=== PATIENT | female | born 1990 | race Caucasian/White ===

== ENCOUNTER 2024-08-03 13:48 | Emergency (ER) | payer OTHER, SELFPAY ==
[2024-08-03 13:49] VITALS: BP 109/74
[2024-08-03 14:09] LABS: % Basophils 0.5 % (0-2); % Eosinophils 0.7 % (0-6); % Immature Granulocytes 0.3 % (0-0.5); % Lymphocytes 19.5 % (20.5-51.1); % Monocytes 5.6 % (1.7-9.3); % Neutrophils 73.4 % (42.2-75.2); Absolute Eosinophils 0.1 10^3/uL (0-0.7); Absolute Lymphocytes 1.7 10^3/uL (1.2-3.4); Absolute Monocytes 0.5 10^3/uL (0.1-0.6); Absolute Neutrophils 6.3 10^3/uL (1.4-6.5); Hemoglobin 13.7 g/dL (12.0-16.0); Mean Corp Hgb Conc. 34.3 g/dL (33.0-37.0); Mean Corpuscular Hgb 30.6 pg (27.0-31.0); Mean Corpuscular Volume 89.5 fL (81.0-99.0); Mean Platelet Volume 10.8 fL (7.4-10.4); Nucleated Red Blood Cells % 0 %; Platelet Count 228 10^3/uL (130-400); Red Blood Cell Count 4.47 10^6/uL (4.20-5.40); White Blood Cell Count 8.6 10^3/uL (4.8-10.8)
[2024-08-03 14:23] LABS: ALT (SGPT) 17 U/L (0-35); AST (SGOT) 16 U/L (14-36); Albumin 4.5 g/dl (3.5-5.0); Alkaline Phosphatase 68 U/L (38-126); Blood Urea Nitrogen 4 mg/dl (7-17); Calcium 9.6 mg/dl (8.4-10.2); Carbon Dioxide 31 mmol/L (22-30); Chloride 105 mmol/L (98-107); Glucose 100 mg/dl (70-99); Potassium 4.9 mmol/L (3.5-5.1); Sodium 142 mmol/L (135-145); Total Bilirubin 0.4 mg/dl (0.2-1.3); Total Protein 6.8 g/dl (6.3-8.2); eGFR > 60.00
[2024-08-03 15:21] VITALS: BMI 27.8
[2024-08-03 15:40] VITALS: BP 105/63; BP 105/65; BP 97/49; PULSE 73; PULSE 88; PULSE 93
[2024-08-03 16:02] LABS: Iron 151 ug/dl (37-170)
[2024-08-03] MEDS: NSS 1000 IV (16:39)
--- NOTE | 2024-08-03 17:27 | ED.GENMED ---
History of Present Illness
General
Chief Complaint: Dizziness
Source: patient
Exam Limitations: none
Time Seen by Provider: 08/03/24 15:20
Nursing documentation reviewed up to this point in time: agreed with
History of Present Illness
History of Present Illness:
Patient presents ED secondary to persistent sensation of dizziness with nausea sensation, when standing up from sitting position, along with intermittent episodes of diarrhea as well as diffuse headache over the past 4 days. Last night, patient
states that she may have passed out for seconds, when she stood up with dizziness. Denies injury from the fall. Denies loss of sensation or weakness. Denies blurred vision. Denies difficulty with ambulation. Denies recent illness. Of note,
patient has been treated for iron deficiency anemia recently. In addition, patient states that there has been number of medication changes recently.
Review of Systems
Review of Systems
Allergies reviewed?: Yes
All Other Systems: ROS reviewed and negative except as documented in HPI and ROS
Constitutional: Reports no symptoms
Respiratory: Reports no symptoms
Cardiac: Reports syncope
ABD/GI: Reports no symptoms
Musculoskeletal: Reports no symptoms
Skin: Reports no symptoms
Neurological: Reports dizzy
Phy Exam
Physical Exam
Physical Exam:
Physical Exam
General: no apparent distress, not acutely ill. afebrile
Head: nc/at. eomi. no nystagmus.
Neck: supple. no meningeal signs.
Heart: s1/s2 regular rate and rhythm
Lungs: no acute respiratory distress. clear bilaterally
Abdomen: normal bowel sounds. not tender.
Neuro: alert and oriented x 3. no focal neurological deficits. normal gait. normal speech.
Skin: no rash
Psychiatric: well kept. interactive and cooperative
Extremities: no edema. no calf tenderness.
Course
Orders/Labs/Results
Orders:
Orders
08/03/24 13:53
Electrocardiogram (*1) Urgent
Reason for Study: Abdominal Pain
EKG- Treatment ONCE
08/03/24 14:04
Complete Blood Count/With Diff Urgent
Comprehensive Metabolic Panel Urgent
Ferritin Urgent
Comment: ADD ON
Iron Urgent
Comment: ADD ON
08/03/24 15:32
Add On- LAB Urgent
Tests Added?: iron
CT Head W/o Iv Contrast Urgent
Comment:
Reason For Exam: headache w dizziness
Orthostatic VS- Treatment ONCE
08/03/24 16:21
0.9% Sodium Chloride 1000 ml [Nss] 1,000 ml IV BOLUS
08/03/24 17:52
Add On- LAB Urgent
Tests Added?: ferritin
Abnormal Lab Results
08/03/24
14:04
MPV 10.8 H fL
(7.4-10.4)
Lymphocytes % 19.5 L %
(20.5-51.1)
Carbon Dioxide 31 H mmol/L
(22-30)
BUN 4 L mg/dl
(7-17)
Glucose 100 H mg/dl
(70-99)
08/03/24 14:04
08/03/24 14:04
Vital Signs
Initial and Last Documented VS:
Initial Vital Signs
Temp Pulse Resp BP Pulse Ox
97.8 F 102 20 109/74 97
08/03/24 13:49 08/03/24 13:49 08/03/24 13:49 08/03/24 13:49 08/03/24 13:49
Last Documented Vital Signs
Temp Pulse Resp BP Pulse Ox
98.2 F 82 16 114/69 99
08/03/24 17:50 08/03/24 17:50 08/03/24 17:50 08/03/24 17:50 08/03/24 17:50
MDM/Problems Addressed
MDM/Problems Addressed:
Patient with unremarkable workup in ED, including blood work and CT head. Orthostatic vital signs checked, without overt symptoms. Patient's present symptoms, likely multifactorial, including current diarrheal episodes along with recent medication
adjustments, as well as iron deficiency anemia. Patient will be provided IV fluids and discharged home, with recommendation to follow-up with her PCP for reevaluation.
*Critical Care Note
Total Time (30-74mins, 75-104mins- exclusive of procedures): Not Applicable
ED Attending Note
-
Portions of this chart may have been created with voice recognition software.� Occasional wrong word or��sound alike� substitutions may have occurred due to the inherent limitations of voice recognition software.
Discharge Plan
Departure
Patient Disposition: Home (Routine Discharge)
Date of Disposition: 08/03/24
Time of Disposition: 17:28
Patient with high blood pressure during this ER visit?: No
Discharge Problem:
Dizziness
Instructions: Dizziness
Prescriptions:
No Action
fluoxetine [Prozac] 40 mg Capsule
40 mg PO DAILY
dextroamphetamine-amphetamine [Adderall] 7.5 mg Tablet
7.5 mg PO BID
omeprazole 20 mg Tablet,Delayed Release (Dr/Ec)
20 mg PO DAILY
Lamictal
100 mg PO HS
acetaminophen [acetaminophen] 325 mg tablet
650 mg PO Q4HPRN PRN (Reason: mild pain) Qty: 1 0RF
ibuprofen 200 mg tablet
400 - 600 mg PO Q6HPRN PRN (Reason: moderate pain) Qty: 1 0RF
oxycodone 5 mg tablet
5 mg PO Q4HPRN PRN (Reason: breakthrough/severe pain) Qty: 10 0RF
Referrals:
NONE,* [Family Provider] -
Activity Restrictions/Additional Instructions:
As discussed, please follow-up with your primary care physician for reevaluation.
Interventions
Interventions:
*Risk Screen - Suicide Last Done: 08/03/24 13:49
*General Assessment Last Done: 08/03/24 13:49
*Neglect/Abuse Screening Last Done: 08/03/24 13:49
*Nursing Disposition Last Done: 08/03/24 17:54
ED- Neurological Assessment Last Done: 08/03/24 15:21
Discharge Date and Time
Discharge Date/Time: 08/03/24 18:08
Print Language: GREEK
[2024-08-03 17:50] VITALS: BP 102/68; BP 111/61; BP 114/69; PULSE 76; PULSE 78; PULSE 82
[2024-08-03 19:17] LABS: Ferritin 11.2 ng/ml (6.24-137)
== END 2024-08-03 18:08 | disposition home or self-care (01) ==
LOC: EMR 13:48
PROVIDERS: EMERGENCY PHYSICIAN Emergency Medicine
DX: R42 Dizziness and giddiness (principal)
CPT/HCPCS: 99284; 96360; 70450; 80053; 82728; 83540; 85025; 93005

== ENCOUNTER 2024-10-01 13:33 | Outpatient (RCR) | payer OTHER, SELFPAY ==
[2024-09-17 13:30] VITALS: BP 101/66
[2024-09-17] MEDS: VENOFER 110 MG IV (13:52)
[2024-09-17 14:54] VITALS: BP 100/50
[2024-09-24 13:50] VITALS: BP 119/61
[2024-09-24] MEDS: VENOFER 110 MG IV (14:02)
[2024-09-24 15:11] VITALS: BP 117/60
[2024-10-01 13:45] VITALS: BP 113/52
[2024-10-01] MEDS: VENOFER 110 MG IV (13:50)
[2024-10-01 15:21] VITALS: BP 105/54
== END 2024-10-04 09:53 | disposition home or self-care (01) ==
LOC: OID 13:33
PROVIDERS: ATTENDING PHYSICIAN Internal Medicine
DX: D50.9 Iron deficiency anemia, unspecified (principal); T45.4X5A Adverse effect of iron and its compounds, initial encounter; Y93.89 Activity, other specified
CPT/HCPCS: 96365; J1756